=== PATIENT | female | born 2000 | race American Indian/Alaskan Native ===

== ENCOUNTER 2021-11-28 10:17 | Emergency (ER) | payer SELFPAY ==
[2021-11-28 10:47] VITALS: BP 121/70
--- NOTE | 2021-11-28 11:28 | Emergency Department Report ---
ED Recheck HPI - General Chief Complaint: Medical Clearance Stated Complaint: B-12 LOW/LITHIUM BLOOD TEST Time Seen by Provider: 11/28/21 11:27 Source: patient Mode of arrival: Ambulatory Limitations: Language Barrier - History of Present Illness Initial Comments: Patient is a 21-year-old female that comes to the emergency room feeling weak and wanting her B12 and lithium levels checked. She denies any new symptoms. No HI no SI. She is cooperative. She is working on a computer during exam. MD Complaint: other Symptoms Since Prior Visit: no new symptoms Associated Symptoms: none - Related Data Allergies Allergy/AdvReac Type Severity Reaction Status Date / Time morphine Allergy Rash Verified 11/28/21 10:48 ED Review of Systems ROS: Stated complaint: B-12 LOW/LITHIUM BLOOD TEST Other details as noted in HPI Comment: All other systems reviewed and negative ED Past Medical Hx - Past Medical History Previous Medical History?: Yes - Surgical History Past Surgical History?: No - Family History Family history: no significant - Social History Smoking Status: Never Smoker Substance Use Type: Alcohol ED Physical Exam - General Limitations: Language Barrier General appearance: alert, in no apparent distress - Head Head exam: Present: atraumatic, normocephalic - Eye Eye exam: Present: normal appearance - ENT ENT exam: Present: mucous membranes moist - Neck Neck exam: Present: normal inspection - Respiratory Respiratory exam: Present: normal lung sounds bilaterally. Absent: respiratory distress - Cardiovascular Cardiovascular Exam: Present: regular rate, normal rhythm. Absent: systolic murmur, diastolic murmur, rubs, gallop - GI/Abdominal GI/Abdominal exam: Present: soft, normal bowel sounds - Extremities Exam Extremities exam: Present: normal inspection - Back Exam Back exam: Present: normal inspection - Neurological Exam Neurological exam: Present: alert, oriented X3 - Psychiatric Psychiatric exam: Present: normal affect, normal mood - Skin Skin exam: Present: warm, dry, intact, normal color. Absent: rash ED Course Vital Signs 11/28/21 10:45 Temperature 97.2 F L Pulse Rate 99 H Respiratory 16 Rate Blood Pressure 121/70 [Right] O2 Sat by Pulse 99 Oximetry ED Recheck MDM - Core Measures Measure Exclusions: not indicated - Medical Decision Making I explained to the patient that we do not do B12 or lithium levels in the emergency room. I have offered to give her referral. However she states she does not have insurance so a referral was useless. She states that she just wants to leave the ER. Patient is cooperative. No HI. No SI. I have encouraged her to follow-up with primary care. Vital Signs 11/28/21 10:45 Temperature 97.2 F L Pulse Rate 99 H Respiratory 16 Rate Blood Pressure 121/70 [Right] O2 Sat by Pulse 99 Oximetry Critical care attestation.: If time is entered above; I have spent that time in minutes in the direct care of this critically ill patient, excluding procedure time. ED Disposition Clinical Impression: Wellness examination Disposition: 07 LEFT AWOL/ELOPED Is pt being admited?: No Does the pt Need Aspirin: No Condition: Stable Time of Disposition: 11:42
== END 2021-11-28 17:27 | disposition left against medical advice (07) ==
LOC: ED 10:17
DX: Z00.00 Encounter for general adult medical examination without abnormal findings (principal); Z72.89 Other problems related to lifestyle
CPT/HCPCS: 99281